=== PATIENT | male | born 1955 | race American Indian/Alaskan Native ===

== ENCOUNTER 2017-10-23 05:36 | Emergency (ER) | payer OTHER ==
[2017-10-23] MEDS ORDERED: ASPIRIN PO ONE (05:59)
[2017-10-23 06:23] LABS: Basophils # (Auto) 0.1 K/mm3 (0.0-0.1); Basophils % (Auto) 0.6 % (0.0-1.8); Eosinophils # (Auto) 0.1 K/mm3 (0.0-0.4); Hematocrit 40.7 % (35.5-45.6); Hemoglobin 13.4 gm/dl (11.8-15.2); Lymphocytes # (Auto) 2.8 K/mm3 (1.2-5.4); Lymphocytes % (Auto) 32.4 % (13.4-35.0); Mean Corpuscular HGB Conc 33 % (32-34); Mean Corpuscular Hemoglobin 29 pg (28-32); Mean Corpuscular Volume 88 fl (84-94); Monocytes # (Auto) 0.9 K/mm3 (0.0-0.8); Monocytes % (Auto) 10.6 % (0.0-7.3); Platelet Count 120 K/mm3 (140-440); Red Blood Count 4.64 M/mm3 (3.65-5.03); Red Cell Distribution Width 14.3 % (13.2-15.2)
--- NOTE | 2017-10-23 06:33 | XRay Report ---
FINAL REPORT EXAM: XR CHEST ROUTINE 2V HISTORY: ARTEM TECHNIQUE: PA and lateral views of the chest were submitted. FINDINGS: The lungs are slightly hyperinflated. There are no acute infiltrates or congestion. Pleural fluid is not seen. There are calcified granulomas in both steve. The skeletal structures are unremarkable. IMPRESSION: Hyperinflation. No acute process in the chest.
[2017-10-23 06:47] LABS: BUN/Creatinine Ratio 11; Blood Urea Nitrogen 10 mg/dL (9-20); Calcium 8.7 mg/dL (8.4-10.2); Hemolysis Index 30
[2017-10-23] MEDS ORDERED: ASPIRIN ONE (08:40)
[2017-10-23] MEDS ORDERED: K-DUR PO ONE (09:19)
[2017-10-23] MEDS ORDERED: PERCOCET 5/325 PO ONE (09:19)
[2017-10-23 10:18] LABS: INR 0.8 (0.87-1.13)
[2017-10-23] MEDS ORDERED: BREVIBLOC DRIP 2.5GM/250ML 2.5 GM/250 ML BAG IV ONE (11:57)
[2017-10-23] MEDS ORDERED: NORMODYNE IV PRN (12:06)
[2017-10-23] MEDS ORDERED: NORMODYNE IV ONE (12:08)
[2017-10-23] MEDS ORDERED: DILAUDID IV ONE (12:27)
[2017-10-23] MEDS ORDERED: ZOFRAN IV ONE ×2 (12:28→13:20)
--- NOTE | 2017-10-23 12:43 | Cat Scan Report ---
CT ANGIO CHEST CT ANGIO ABDOMEN AND PELVIS History: Shortness of breath, chest pain, dissection Technique: Helical CT following IV contrast. Sagittal and coronal reformatted images. Rotational MIP images. Findings: Contrast bolus is adequate. An aortic dissection is identified originating from the posterior aortic arch and extending just below the takeoff of the left renal artery. The dissection appears to extend into the celiac trunk. Stenosis at the origin of the celiac trunk is estimated at 75% or greater. The left renal artery arises from the false lumen of the dissection. The mid to distal aorta and bilateral iliac systems are patent with no evidence of dissection or stenosis. This is consistent with a DeBakey type 3 dissection. Heart size is normal. No pericardial effusion. The central pulmonary arteries are grossly clear of embolus. There are moderate centrilobular emphysematous changes in both upper lung zones. No evidence for mass, adenopathy, infiltrate or effusion. The liver is mildly enlarged but no focal lesion is identified. The biliary system, pancreas, spleen and adrenal glands are unremarkable. There are a few scattered simple cysts in both kidneys. There appears to be symmetric renal perfusion. The ureters are normal course and caliber. The bladder is unremarkable. The bowel loops are grossly normal given no oral contrast was administered. The appendix is not confidently identified. 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 The dissection appears to extend into the celiac trunk as outlined above. The left renal artery arises from the false lumen but appears adequately perfused.
[2017-10-23] MEDS: NORMODYNE 200 MG in D5W 160 ML IV ONE ×2 (12:57→15:39)
--- NOTE | 2017-10-23 13:27 | Emergency Department Report ---
ED Chest Pain HPI - General Chief Complaint: Dyspnea/Respdistress Stated Complaint: SOB Time Seen by Provider: 10/23/17 08:40 Source: patient, EMS Mode of arrival: Ambulatory Limitations: No Limitations - History of Present Illness Initial Comments: 62 year male with a past medical history review diagnose hypertension and tobacco use presents to the hospital with complaints of bilateral anterior chest pain that started suddenly at 3 AM. Patient complaints of chain across his bilateral lower anterior ribs described as a constant tightness rated 10/10 in intensity. Pain is worse in movement, palpation, and deep inspiration. Positive associated shortness of breath. Last week patient presented to an urgent care with cold symptoms and was treated with antibiotics, ?steroids, an inhaler, and was started on blood pressure medication for newly diagnosed hypertension. Patient has not recalled the name or have his current medications available for review. Recent travel reported from [place] via car 4 days ago. Patient denies history of PE/DVT, calf tenderness, leg asymmetry, persisting cough, or fever. Intermittent wheezing reported Severity scale (0 -10): 8 - Related Data Home Medications Medication Instructions Recorded Confirmed Last Taken Albuterol Sulfate [Ventolin HFA] 2 puff IH Q6H PRN 10/23/17 10/23/17 Unknown Lisinopril [Zestril] 5 mg PO QDAY 10/23/17 10/23/17 Unknown Prednisone [predniSONE 10 mg 10 mg PO .TAPER 10/23/17 10/23/17 Unknown (6-Day Pack, 21 Tabs)] Zithromax Z-DARELL 1 dose PO QDAY 10/23/17 10/23/17 Unknown Allergies Allergy/AdvReac Type Severity Reaction Status Date / Time No Known Allergies Allergy Unverified 10/23/17 05:55 Heart Score - HEART Score History: Slightly suspicious EKG: Normal Age: 45-65 Risk factors: 1-2 risk factors Troponin: < normal limit HEART Score: 2 ED Review of Systems ROS: Stated complaint: SOB Other details as noted in HPI Comment: All other systems reviewed and negative Other: Constitutional: No fevers chills Eyes: No eye pain visual changes ENT: No ear pain or throat pain Neck: Denies pain Respiratory: Denies cough wheezing Cardiovascular: Denie palpitations, syncope GI: Denies abdominal pain, nausea, vomiting, diarrhea : Denies dysuria Musculoskeletal: Denies back pain Skin: Denies rash, lesions, erythema Neurologic: Denies headache, numbness, weakness Psychiatric: Denies suicidal ideation, hallucinations ED Past Medical Hx - Past Medical History Previous Medical History?: Yes Hx Hypertension: Yes - Surgical History Past Surgical History?: No - Social History Smoking Status: Current Every Day Smoker Substance Use Type: None - Medications Home Medications: Home Medications Medication Instructions Recorded Confirmed Last Taken Type Albuterol Sulfate [Ventolin HFA] 2 puff IH Q6H PRN 10/23/17 10/23/17 Unknown History Lisinopril [Zestril] 5 mg PO QDAY 10/23/17 10/23/17 Unknown History Prednisone [predniSONE 10 mg 10 mg PO .TAPER 10/23/17 10/23/17 Unknown History (6-Day Pack, 21 Tabs)] Zithromax Z-DARELL 1 dose PO QDAY 10/23/17 10/23/17 Unknown History ED Physical Exam - General Limitations: No Limitations - Other Other exam information: General: No limitations, patient is alert in no acute distress Head exam: Atraumatic, normocephalic Eyes exam: Normal appearance ENT: Moist mucous membrane, normal oropharynx Neck exam: Normal inspection, full range of motion, no meningismus nontender Respiratory exam: Clear to auscultation bilateral, no wheezes, rales, crackles Cardiovascular: Normal rate and rhythm, normal heart sounds. Bilateral anterior lower chest wall/rib tenderness to palpation. Right more tender than left Abdomen: Soft, nondistended, and nontender, with normal bowel sounds, no rebound, or guarding Extremity: Full range of motion normal inspection no deformity, 2+ DP pulses equal bilaterally Back: Normal Inspection, full range of motion, no tenderness Neurologic: Alert, oriented x3, cranial nerves intact, no motor or sensory deficit Psychiatric: normal affect, normal mood Skin: Warm, dry, intact ED Course Vital Signs 10/23/17 10/23/17 10/23/17 05:37 05:55 08:18 Temperature 97.4 F L 97.4 F L Pulse Rate 53 L 53 L 70 Respiratory 18 20 17 Rate Blood Pressure 189/84 189/84 Blood Pressure [Right] O2 Sat by Pulse 94 96 96 Oximetry 10/23/17 10/23/17 10/23/17 08:30 08:31 08:32 Temperature Pulse Rate 55 L 61 61 Respiratory 12 19 Rate Blood Pressure 177/80 Blood Pressure 177/80 [Right] O2 Sat by Pulse 99 97 Oximetry 10/23/17 10/23/17 10/23/17 09:00 09:30 10:00 Temperature Pulse Rate 70 78 75 Respiratory 11 L 13 13 Rate Blood Pressure 175/89 182/92 173/95 Blood Pressure [Right] O2 Sat by Pulse 98 99 99 Oximetry 10/23/17 10/23/17 10/23/17 10:03 10:30 11:00 Temperature Pulse Rate 71 57 L 74 Respiratory 16 17 17 Rate Blood Pressure 140/100 157/82 Blood Pressure 173/95 [Right] O2 Sat by Pulse 99 99 98 Oximetry 10/23/17 10/23/17 10/23/17 11:54 12:00 12:01 Temperature Pulse Rate 78 80 Respiratory 18 15 19 Rate Blood Pressure 151/83 164/88 Blood Pressure 185/96 [Right] O2 Sat by Pulse 95 93 98 Oximetry 10/23/17 10/23/17 10/23/17 12:25 12:30 12:57 Temperature Pulse Rate 80 74 86 Respiratory 13 Rate Blood Pressure 185/96 170/104 156/86 Blood Pressure [Right] O2 Sat by Pulse 95 Oximetry 10/23/17 10/23/17 10/23/17 13:00 13:30 13:40 Temperature Pulse Rate 88 102 H 54 L Respiratory 24 21 18 Rate Blood Pressure 149/112 163/109 138/61 Blood Pressure [Right] O2 Sat by Pulse 96 94 95 Oximetry 10/23/17 10/23/17 10/23/17 13:50 14:00 14:10 Temperature Pulse Rate 53 L 54 L 56 L Respiratory 13 12 13 Rate Blood Pressure 130/65 110/59 120/59 Blood Pressure [Right] O2 Sat by Pulse 95 95 95 Oximetry 10/23/17 10/23/17 10/23/17 14:20 14:30 14:40 Temperature Pulse Rate 62 72 55 L Respiratory 13 24 13 Rate Blood Pressure 127/64 126/54 122/59 Blood Pressure [Right] O2 Sat by Pulse 96 94 95 Oximetry 10/23/17 14:50 Temperature Pulse Rate 74 Respiratory 22 Rate Blood Pressure 122/61 Blood Pressure [Right] O2 Sat by Pulse 95 Oximetry - Reevaluation(s) Reevaluation #1: 10/23/17 14:00 Pain improved with ED treatment. Blood pressure sitting downward with treatment - Consultations Consultation #1: 10/23/17 13:21 accepted by Swetha Terry CT surgeon at 1:11 pm to [facility] TAYO score - Tayo Score Age > 65: (0) No Aspirin use within the Past 7 Days: (0) No 3 or more CAD Risk Factors: (1) Yes 2 or more Angina events in past 24 hrs: (1) Yes Known CAD with more than 50% Stenosis: (0) No Elevated Cardiac Markers: (0) No ST Deviation Greater than 0.5mm: (0) No TAYO Score: 2 ED Medical Decision Making - Lab Data Result diagrams: 10/23/17 06:03 10/23/17 06:03 Lab Results 10/23/17 10/23/17 10/23/17 Range/Units 06:03 06:03 09:36 WBC 8.8 (4.5-11.0) K/mm3 RBC 4.64 (3.65-5.03) M/mm3 Hgb 13.4 (11.8-15.2) gm/dl Hct 40.7 (35.5-45.6) % MCV 88 (84-94) fl MCH 29 (28-32) pg MCHC 33 (32-34) % RDW 14.3 (13.2-15.2) % Plt Count 120 L (140-440) K/mm3 Lymph % (Auto) 32.4 (13.4-35.0) % [place] % (Auto) 10.6 H (0.0-7.3) % Eos % (Auto) 1.0 (0.0-4.3) % Baso % (Auto) 0.6 (0.0-1.8) % Lymph # 2.8 (1.2-5.4) K/mm3 Mingo # 0.9 H (0.0-0.8) K/mm3 Eos # 0.1 (0.0-0.4) K/mm3 Baso # 0.1 (0.0-0.1) K/mm3 Seg Neutrophils % 55.4 (40.0-70.0) % Seg Neutrophils # 4.9 (1.8-7.7) K/mm3 PT (12.2-14.9) Sec. INR (0.87-1.13) D-Dimer (0-234) ng/mlDDU Sodium 143 (137-145) mmol/L Potassium 3.5 L (3.6-5.0) mmol/L Chloride 103.1 (98-107) mmol/L Carbon Dioxide 25 (22-30) mmol/L Anion Gap 18 mmol/L BUN 10 (9-20) mg/dL Creatinine 0.9 (0.8-1.5) mg/dL Estimated GFR > 60 ml/min BUN/Creatinine Ratio 11 % Glucose 145 H (75-100) mg/dL Calcium 8.7 (8.4-10.2) mg/dL Troponin T < 0.010 < 0.010 (0.00-0.029) ng/mL 10/23/17 10/23/17 Range/Units 09:36 11:48 WBC (4.5-11.0) K/mm3 RBC (3.65-5.03) M/mm3 Hgb (11.8-15.2) gm/dl Hct (35.5-45.6) % MCV (84-94) fl MCH (28-32) pg MCHC (32-34) % RDW (13.2-15.2) % Plt Count (140-440) K/mm3 Lymph % (Auto) (13.4-35.0) % [place] % (Auto) (0.0-7.3) % Eos % (Auto) (0.0-4.3) % Baso % (Auto) (0.0-1.8) % Lymph # (1.2-5.4) K/mm3 [place] # (0.0-0.8) K/mm3 Eos # (0.0-0.4) K/mm3 Baso # (0.0-0.1) K/mm3 Seg Neutrophils % (40.0-70.0) % Seg Neutrophils # (1.8-7.7) K/mm3 PT 11.4 L (12.2-14.9) Sec. INR 0.80 L (0.87-1.13) D-Dimer 1885.01 H (0-234) ng/mlDDU Sodium (137-145) mmol/L Potassium (3.6-5.0) mmol/L Chloride (98-107) mmol/L Carbon Dioxide (22-30) mmol/L Anion Gap mmol/L BUN (9-20) mg/dL Creatinine (0.8-1.5) mg/dL Estimated GFR ml/min BUN/Creatinine Ratio % Glucose (75-100) mg/dL Calcium (8.4-10.2) mg/dL Troponin T < 0.010 (0.00-0.029) ng/mL - Medical Decision Making Aortic dissection/HTN Although patient has anterior reproducible chest wall tenderness CT shows a type B aortic dissection distal to the subclavian We do not have CT surgery coverage available here Patient accepted by [place] CT surgery for transfer to [facility] Patient on labetalol drip titration with goal MAP 70 Chest pain Patient received 1 dose of aspirin as per chest pain protocol Muscle skeletal reproducible component No ST elevation GA and negative troponin 3 Positive aortic dissection diagnosed Patient received Percocet, Zofran, and Dilaudid for pain Hypokalemia Patient given 1 dose of by mouth potassium Mild thrombocytopenia no previous available for review - Differential Diagnosis GA, unstable angina, PE, dissection, bronchitis, costochondritis, chest wal Critical Care Time: Yes Critical care time in (mins) excluding proc time.: 35 Critical care attestation.: If time is entered above; I have spent that time in minutes in the direct care of this critically ill patient, excluding procedure time. ED Disposition Clinical Impression: Dissecting aneurysm of thoracic aorta, Barre type B, Uncontrolled hypertension, Chest pain, Hypokalemia, Thrombocytopenia Disposition: DC/TX-70 ANOTHER TYPE HLTHCARE Is pt being admited?: No Condition: Stable Time of Disposition: 13:15 (accepted for transfer to [facility])
[2017-10-23 17:20] VITALS: BP 128/58
[2017-10-23] MEDS ORDERED: NORMODYNE 200 MG in D5W 160 ML IV ONE (18:00)
== END 2017-10-23 17:56 | disposition other institution (70) ==
LOC: ED 05:36
DX: I71.01 Dissection of thoracic aorta (principal); I10 Essential (primary) hypertension; E87.6 Hypokalemia; D69.6 Thrombocytopenia, unspecified; F17.200 Nicotine dependence, unspecified, uncomplicated
CPT/HCPCS: 36415; 71046; 71275; 74174; 80048; 84484; 85025; 85379; 85610; 93005; 93010; 96365; 96375; 96376; 99291; J1170; J2405; Q9967